=== PATIENT | female | born 1980 | race African-American/Black ===

== ENCOUNTER 2016-08-17 17:54 | Emergency (ER) | payer MEDICAID, OTHER ==
[~2016-08-17] VITALS: Ht 172.7 cm; Wt 76.7 kg
[~2016-08-17 17:54] MED LIST: INFLINJ IM; PRENCAP6 PO; ZOLO25TA PO
[2016-08-17 18:30] VITALS: BP 100/63; PULSE 88; RESP 18; TEMP 98.6; O2SAT 97
--- NOTE | 2016-08-17 21:07 | PD ---
HPI Chief Complaint: Cold / Flu Symptoms Time Seen by Provider: 21:06 Travel History International Travel<30 days: Yes Contact w/Intl Traveler<30days: Yes Name of Country Traveled to: [place] History of Present Illness HPI 36-year-old female presents to the ED for evaluation of four-day history of malaise, body aches, fevers, chills, eye pain, runny nose, nonproductive cough. Symptoms onset gradually on the evening of 08/14. Patient has not measured a fever at home. Denies ear pain, chest pain, shortness of breath, abdominal pain , nausea, vomiting, diarrhea, urinary symptoms. Treated with Tylenol with some improvement of her fever symptoms but states that the fever returns shortly after treatment. She denies receiving this years flu vaccine. 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 She endorses a single mosquito bite on the face during the trip. She denies arthralgias, reddened eyes, skin rash. She states that of the 15 members of the group are now ill. PFSH Past Medical History Anxiety: Yes Depression: Yes Diminished Hearing: No Migraines: Yes : 5 Para: 3 Miscarriage: 2 : 0 Ectopic : Yes (x1) Social History Alcohol Use: Yes (OCCASIONALLY) Tobacco Use: No Substance Use: No Allergies-Medications (Allergen,Severity, Reaction): Coded Allergies: No Known Allergies (Verified , 01/06/15) Reported Meds & Prescriptions Reported Meds & Active Scripts Active Review of Systems Except as stated in HPI: all other systems reviewed are Neg Physical Exam Narrative GENERAL: Well-nourished, well-developed nontoxic appearing black female in no acute distress. SKIN: Warm and dry. HEAD: Normocephalic. Atraumatic. EYES: No scleral icterus. No injection or drainage. PERRLA. EOMI. ENT: Pearly martinez tympanic membranes bilaterally. Nasal mucosa is moist. Oropharynx with mild posterior erythema. No edema or exudate. Airway patent. Uvula midline. NECK: Supple, trachea midline. No JVD or lymphadenopathy. CARDIOVASCULAR: Regular rate and rhythm without murmurs, gallops, or rubs. 2+ DP and radial pulses bilaterally. RESPIRATORY: Breath sounds clear and equal bilaterally. No accessory muscle use. GASTROINTESTINAL: Abdomen soft, non-tender, nondistended. + Bowel sounds MUSCULOSKELETAL: No cyanosis, or edema. The patient is noted to walk with a normal gait. BACK: Nontender without obvious deformity. No CVA tenderness. Data Data Last Documented VS Vital Signs Date Time Temp Pulse Resp B/P Pulse Ox O2 Delivery O2 Flow Rate FiO2 08/17/16 21:25 20 08/17/16 18:30 98.6 88 100/63 97 Room Air Orders Group A Rapid Strep Screen (08/17/16 21:04) Influenzae A/B Antigen (08/17/16 21:04) Strep Culture (Group A) (08/17/16 21:15) MDM Medical Decision Making Medical Screen Exam Complete: Yes Emergency Medical Condition: Yes Differential Diagnosis Influenza versus viral syndrome versus pharyngitis versus strep pharyngitis versus seek a virus versus other Narrative Course 36-year-old female presents to the ED for evaluation of 4 day history of malaise , body aches, fevers, chills, eye pain, runny nose, nonproductive cough. Onset gradually on the evening of 08/14. Her pain, chest pain, shortness of breath, abdominal pain, nausea, vomiting, diarrhea, urinary symptoms, arthralgia, reddened eyes, skin rash. Treated with Tylenol with some improvement of symptoms. Denies receiving this years flu vaccine. States that she had her family are recently on a missionary trip to [place] and they're host just tested positive for influenza. Vitals reviewed. Physical exam reveals an ill- appearing black female with mild posterior oropharyngeal erythema. Remaining physical exam is unremarkable. Flu swabs negative. However all 3 of her children tested positive for influenza so I suspect this was a false negative. Patient's beyond the window for treatment with Tamiflu. She is instructed to continue to treat symptomatically, drink lots of fluids, take Tylenol as prescribed, follow up with the primary care provider. She indicated understanding of instructions and is amenable to plan of care. She is stable and discharged home. Diagnosis Primary Impression: Influenza A Referrals: Primary Care Physician Patient Instructions: General Instructions, Influenza (ED) Additional Instructions: Rest, hydrate. Push fluids such as sports drinks, Pedialyte, popsicles, clear broth. Offered favorite foods to encourage eating. Take Tamiflu as prescribed. Continue with symptomatic treatment. Alternating Motrin and Tylenol every 4-6 hours as needed for continued fever. Increase handwashing frequently to avoid the spread of the virus to other family members and the community. Disinfect commonly touched surfaces such as light switches, microwaves, remote controls. Replace toothbrush at the end of this illness. Follow-up with the primary care provider this week. Return to the ED for any urgent or emergent medical condition. Disposition: 01 DISCHARGE HOME Condition: Stable Vane Negrete Aug 17, 2016 21:07
[2016-08-17] MEDS ORDERED: ZOFR4TAB3 SL (22:35)
== END 2016-08-17 22:57 | disposition home or self-care (01) ==
LOC: PHED 17:54 → PHEFT 22:57
DX: J09.X2 Influenza due to identified novel influenza A virus with other respiratory manifestations (principal)
CPT/HCPCS: 87081; 87804; 87880; 99283